=== PATIENT | female | born 1990 | race African-American/Black ===

== ENCOUNTER 2020-11-15 09:25 | Inpatient (IN) ==
[2020-11-15] MEDS: LABETALOL 200 MG TABLET PO SCH ×2 (22:10→23:15)
[2020-11-16] MEDS ORDERED: ONDANSETRON 4 MG/2 ML VIAL IV PRN (00:14)
[2020-11-16] MEDS ORDERED: FAMOTIDINE 20 MG/2 ML VIAL IV PRN (00:14)
[2020-11-16] MEDS ORDERED: MEPERIDINE 50 MG/1 ML VIAL IV PRN (00:14)
[2020-11-16] MEDS: BUTORPHANOL 2 MG/ML VIAL IV PRN ×2 (00:44→04:44)
[2020-11-16 01:02] LABS: Basophils % 0.3 % (0.0-0.8); Eosinophils % 0.3 % (0.00-10.9); Hematocrit 36.4 VOL% (35.7-47.0); Immature Granulocytes % 0.6 %; Immature Granulocytes Absolute 0.06 #; Lymphocytes # 2.1 10*3/uL (1.4-4.0); Lymphocytes % 20.9 % (21.3-54.2); Mean Platelet Volume 10.2 FL (9.6-12.0); Monocytes % 7.9 % (1.7-12.7); Platelet Count 372 T/CUMM (130-400); Red Blood Count 4.28 MC/CUMM (3.8-5.5); Red Cell Distribution Width 15.6 % (9.3-17.3); White Blood Count 10.3 T/CUMM (4-12)
[2020-11-16] MEDS ORDERED: INFLUENZA VIRUS VACCINE 0.5 ML SYRINGE IM ONE (01:12)
[2020-11-16] MEDS: LACTATED RINGERS 1,000 ML IV SCH ×2 (06:10→13:50)
[2020-11-16] MEDS: LABETALOL 200 MG TABLET PO SCH (08:37)
[2020-11-16] MEDS ORDERED: hydrOXYzine HCL 25 MG/1 ML VIAL IM PRN (09:47)
[2020-11-16] MEDS ORDERED: ePHEDrine 50 MG/ML VIAL IV PRN (09:47)
[2020-11-16] MEDS ORDERED: NALOXONE 0.4 MG/ML VIAL IV PRN (09:47)
[2020-11-16] MEDS ORDERED: CITRIC ACID/SODIUM CITRATE 30 ML UDCUP PO ONE (09:47)
[2020-11-16] MEDS ORDERED: LACTATED RINGERS 1,000 ML IV ONE (09:47)
[2020-11-16] MEDS ORDERED: FAMOTIDINE 20 MG/2 ML VIAL IV ONE (09:47)
[2020-11-16] MEDS ORDERED: PROMETHAZINE 25 MG/1 ML VIAL IM ONE (09:47)
[2020-11-16] MEDS ORDERED: diphenhydrAMINE 50 MG/1 ML VIAL IV PRN ×2 (09:47)
[2020-11-16] MEDS ORDERED: fentaNYL 2 MCG/ROPIV 0.2% EPID 100 ML EPIDURAL SCH (10:00)
[2020-11-16 11:45] LABS: PT Patient Result 10.9 SECS (9.8-11.9); Partial Thromboplastin Time 26.8 SECS (23.9-33.8)
[2020-11-16 12:12] LABS: Alanine Aminotransferase 10 U/L (13-56); Albumin 2.7 G/DL (3.4-5.0); Alkaline Phosphatase 116 U/L (45-117); Aspartate Amino Transferase 8 U/L (0-37); Bilirubin,Direct < 0.100 MG/DL (0.0-0.20); Blood Urea Nitrogen 7 MG/DL (7-18); Calcium 9.3 MG/DL (8.5-10.1); Estimated Glom Filtration Rate 176 ML/MIN; Glucose 66 MG/DL (74-106); Osmolality,Calculated 270.7 MOS/KG (273-304); Total Protein 7.3 G/DL (6.4-8.3); Uric Acid 6.2 MG/DL (2.6-6.0)
[2020-11-16] MEDS ORDERED: OXYTOCIN/LR 20 UNIT/1,000 ML BAG IV SCH (12:40)
[2020-11-16 13:56] LABS: Bacteria,Urine Occasional /HPF (Few); Bilirubin,Urine Negative (Negative); Blood, Urine Negative (Negative); Glucose,Urine (UA) Negative (Negative); Ketones,Urine 20 mg/dL (Negative); Mucus,Urine Occasional /LPF (Occasional); Nitrite,Urine Negative (Negative); Protein,Urine Negative; RBC,Urine 1 /HPF (0-4); Squamous Epithelial Cell,Urine Occasional /HPF (0-10); Urine Appearance CLEAR (Clear); Urine Color Straw (Yellow); Urine Specific Gravity 1.008 (1.001-1.035); Urine Urobilinogen < 2.0 EU/DL (0.2-1.0); WBC,Urine 1 /HPF (0-6)
[2020-11-16] MEDS ORDERED: miSOPROStoL 200 MCG TABLET ONE (17:15)
[2020-11-16] MEDS ORDERED: TRANEXAMIC ACID 1,000 MG/10 ML VIAL ONE (17:15)
[2020-11-16] MEDS ORDERED: METHYLERGONOVINE 0.2 MG/1 ML AMP ONE (17:15)
[2020-11-16] MEDS ORDERED: CARBOPROST TROMETHAMINE 250 MCG/ML AMP IM ONE (17:16)
[2020-11-16 18:05] LABS: Cord Arterial Blood HCO3 24.4 MMOL/L
[2020-11-16 18:07] LABS: Cord Venous Blood HCO3 22.2 MMOL/L; Cord Venous Blood PCO2 42.1 MMHG; Cord Venous Blood PO2 27.1
[2020-11-16] MEDS ORDERED: HYDROCORTISONE 2.5% RECTAL CREAM 30 GM TUBE TOP PRN (20:30)
[2020-11-16] MEDS ORDERED: MEASLES/MUMPS/RUBELLA VACCINE 0.5 ML VIAL SUBCUT ONE (20:30)
[2020-11-16] MEDS ORDERED: DIPH/TET/ACEL PERT BOOSTER VACCINE 0.5 ML VIAL IM ONE (20:30)
[2020-11-16] MEDS ORDERED: RHO(D) IMMUNE GLOBULIN 300 MCG SYRINGE IM ONE (20:30)
[2020-11-16] MEDS ORDERED: OXYTOCIN/LR 20 UNIT/1,000 ML BAG IV ONE (20:30)
[2020-11-16] MEDS ORDERED: LANOLIN 50% CREAM 0.3 OZ TUBE TOP PRN (20:30)
[2020-11-16] MEDS ORDERED: ACETAMINOPHEN 325 MG TABLET PO PRN (20:30)
[2020-11-16] MEDS ORDERED: WITCH HAZEL PADS 100/JAR TOP PRN (20:30)
[2020-11-16] MEDS ORDERED: BENZOCAINE 20%/MENTHOL 0.5% SPRAY 56 GM CAN TOP PRN (20:30)
[2020-11-16] MEDS ORDERED: oxyCODONE/ACETAMINOPHEN 5-325 MG TABLET PO PRN (20:30)
[2020-11-16] MEDS ORDERED: BISACODYL 10 MG SUPP RECTAL PRN (20:30)
[2020-11-16] MEDS: IBUPROFEN 800 MG TABLET PO PRN (20:41)
[2020-11-16] MEDS ORDERED: LABETALOL 200 MG TABLET PO SCH (21:00)
[2020-11-16] MEDS: oxyCODONE/ACETAMINOPHEN 5-325 MG TABLET PO PRN (22:05)
[2020-11-16] MEDS: DOCUSATE SODIUM 100 MG CAPSULE PO SCH (22:05)
[2020-11-17] MEDS: IBUPROFEN 800 MG TABLET PO PRN (05:47)
[2020-11-17 07:14] LABS: Basophils % 0.1 % (0.0-0.8); Eosinophils % 0.3 % (0.00-10.9); Hematocrit 33.5 VOL% (35.7-47.0); Hemoglobin 10.5 GM/DL (12.0-16.0); Immature Granulocytes % 0.7 %; Lymphocytes # 1.5 10*3/uL (1.4-4.0); Mean Corpuscular HGB Conc 31.3 GM/DL (32-36); Mean Corpuscular Volume 89.6 FL (87-102); Mean Platelet Volume 9.7 FL (9.6-12.0); Monocytes % 9.2 % (1.7-12.7); Neutrophils % 78.7 % (38.7-73.9); Platelet Count 326 T/CUMM (130-400); Red Blood Count 3.74 MC/CUMM (3.8-5.5); Red Cell Distribution Width 15.6 % (9.3-17.3)
[2020-11-17] MEDS: DOCUSATE SODIUM 100 MG CAPSULE PO SCH ×2 (09:39→19:51)
[2020-11-17] MEDS: oxyCODONE/ACETAMINOPHEN 5-325 MG TABLET PO PRN (19:51)
[2020-11-18 08:24] VITALS: BP 141/74
[2020-11-18] MEDS: DOCUSATE SODIUM 100 MG CAPSULE PO SCH (09:26)
[2020-11-18] MEDS ORDERED: INFLUENZA VIRUS VACCINE 0.5 ML SYRINGE IM ONE (10:06)
== END 2020-11-18 11:40 | disposition home or self-care (01) | DRG 807 ==
LOC: N.LDOUT 09:25 → N.LD 09:26 → N.OB 11-16 21:35
PROVIDERS: ADMIT Obstetrics & Gynecology; ATTEND Obstetrics & Gynecology